=== PATIENT | male | born 2005 | race Hispanic/Latino ===

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

== ENCOUNTER 2025-01-03 20:15 | Emergency (ER) | payer SELFPAY ==
--- OUTSIDE RECORDS SUMMARY | 2025-01-03 20:17 | XMS_ITS | Clinical Summary ---
Author Organization [facility] Address [address] [place] [id number] Care Team Providers Care Gas Meter Repair Supervisor Name Role Phone No, Physician Primary Care Provider [phone] Allergies No known active allergies Medications ondansetron ODT (ZOFRAN-ODT) 4 mg disintegrating tablet Take 1 tablet (4 mg total) by mouth every 8 (eight) hours as needed for nausea or vomiting 20 tablet 3 Active Surgical History Surgery Date Site/Laterality Comments CLOSED REDUCTION RADIAL / ULNAR SHAFT FRACTURE Right Medical History Medical History Date Comments No pertinent past medical history Social History Tobacco Use Types Packs/Day Years Used Date Smoking Tobacco: Never Tobacco Cessation:Counseling Given: Not Answered Alcohol Use Standard Drinks/Week Comments Not Currently 0 (1 standard drink = 0.6 oz pur e alcohol) Personal Safety Answer Date Recorded Getting School Help Needed Not on file 07/20 Sex and Gender Information Value Date Recorded Sex Assigned at Not on file Legal Sex Male 9:25 PM CDT Gender Identity Not on file Sexual Orientation Not on file Obstetrics History Last Filed Vital Signs Vital Sign Reading Time Taken Comments Blood Pressure 118/68 09/07/2023 6:00 AM APPLIANCE INSTALLER Pulse 78 09/07/2023 6:00 AM APPLIANCE INSTALLER Temperature 36.7 C (98.1 F) 09/07/2023 2:29 AM APPLIANCE INSTALLER Respiratory Rate 17 09/07/2023 6:00 AM APPLIANCE INSTALLER Oxygen Saturation 100% 09/07/2023 6:00 AM APPLIANCE INSTALLER Inhaled Oxygen Concentration - - Weight 72.6 kg (160 lb) 09/07/2023 2:29 AM APPLIANCE INSTALLER Height 170.2 cm (5' 7 ) 09/07/2023 2:29 AM APPLIANCE INSTALLER Body Mass Index 25.06 09/07/2023 2:29 AM APPLIANCE INSTALLER Plan of Treatment Health Maintenance Due Date Last Done Comments Depression Screening 2004 Hepatitis C Screening 2004 Meningococcal B Vaccine (2 o f 2 - Trumenba SCDM 2-dose series) 02/06/2022 08/09/2021 Regular Well Visit/Exam 18-64 02/20/2022 Influenza Vaccine (#1) 2024 , 06/28/2017, 06/22/2016 DTaP/Tdap/Td Vaccine (8 - Td or Tdap) 06/22/2026 06/22/2016, 06/20/2016, 06/01/2009, Additional history exists Hepatitis B Screening Completed 2004 , 2004, 2004, Additional history exists Pneumococcal vaccine <65 Completed 005, 2004, 2004, Additional history exists HPV Vaccines Completed 06/28/2017, 08/29, 05/06/2013, Additional history exists Varicella Vaccines Completed 06/28/2017, 0 06/22/2016, 06/01/2009, Additional history exists Meningococcal Vaccine Completed 08/09/2020 , 06/22/2016, 06/20/2016 Care Teams Gas Meter Repair Supervisor Relationship Specialty Start Date End Date No, Physician PCP - General 07/19/23
--- OUTSIDE RECORDS SUMMARY | 2025-01-03 20:17 | XMS_ITS | Referral Summary ---
Author Organization [facility] Address [address] [place] [phone] Care Team Providers Care Career Services Representative Name Role Phone No, Physician Primary Care Provider [phone] Allergies No known active allergies Medications ondansetron ODT (ZOFRAN-ODT) 4 mg disintegrating tablet Take 1 tablet (4 mg total) by mouth every 8 (eight) hours as needed for nausea or vomiting 20 tablet 3 Active Social History Tobacco Use Types Packs/Day Years [...] on file Sexual Orientation Not on file Last Filed Vital Signs Vital Sign Reading Time Taken Comments Blood Pressure 118/68 09/07/2023 6:00 AM HEALTH PROGRAM ANALYST Pulse 78 09/07/2023 6:00 AM HEALTH PROGRAM ANALYST Temperature 36.7 C (98.1 F) 09/07/2023 2:29 AM HEALTH PROGRAM ANALYST Respiratory Rate 17 09/07/2023 6:00 AM HEALTH PROGRAM ANALYST Oxygen Saturation 100% 09/07/2023 6:00 AM HEALTH PROGRAM ANALYST Inhaled Oxygen Concentration - - Weight 72.6 kg (160 lb) 09/07/2023 2:29 AM HEALTH PROGRAM ANALYST Height 170.2 cm (5' 7 ) 09/07/2023 2:29 AM HEALTH PROGRAM ANALYST Body Mass Index 25.06 09/07/2023 2:29 AM HEALTH PROGRAM ANALYST Plan of Treatment Not on file Care Teams Career Services Representative Relationship Specialty Start Date End Date No, Physician PCP - General 07/19/23
--- NOTE | 2025-01-03 20:46 | PC.NURSE ---
called pt for triage, no answer
--- NOTE | 2025-01-03 20:57 | PC.NURSE ---
No answer when called again for Triage
--- NOTE | 2025-01-03 21:10 | PC.NURSE ---
called for triage, no answer
--- OUTSIDE RECORDS SUMMARY | 2025-01-03 21:15 | XMS_ITS | Encounter Summary ---
Author Organization [facility] Address [address] [place] [address] Care Team Providers Care Development Analyst Name Role Phone No, Physician Primary Care Provider [phone] Reason for Visit * Reason Comments Shortness of Breath Palpitations Encounter Details Date Type Department Care Team (Late st Contact Info) Description 01/03/2025 8:50 PM CDT Emergency [facility] Emergency Department [facility] [place] [address] Social History Tobacco Use Types Packs/Day Years Used Date Smoking Tobacco: Never Alcohol Use Standard Drinks/Week Comments Not Currently 0 (1 standard drink = 0.6 oz pur e alcohol) Personal Safety Answer Date Recorded Getting School Help Needed Not on file 07/20 Sex and Gender Information Value Date Recorded Sex Assigned at Not on file Legal Sex Male 9:25 PM CDT Gender Identity Not on file Sexual Orientation Not on file documented as of this encounter Last Filed Vital Signs Vital Sign Reading Time Taken Comments Blood Pressure 132/83 01/03/2025 9:00 PM CDT Pulse 123 01/03/2025 9:00 PM CDT Temperature 36.6 C (97.9 F) 01/03/2025 9:00 PM CDT Respiratory Rate 20 01/03/2025 9:00 PM CDT Oxygen Saturation 100% 01/03/2025 9:00 PM CDT Inhaled Oxygen Concentration - - Weight 80.8 kg (178 lb 2.1 oz) 01/03/2025 9:00 P M CDT Height - - Body Mass Index 27.9 09/07/2023 2:29 AM MEDICAL TECHNOLOGIST PRN documented in this encounter ED Notes * Artem Jett RN - 01/03/2025 8:57 PM CDT Pt arrives complaining of shortness of breath with palpitations. My chest feels really tight on my lungs right now. Pt states that he was walking in [employer] and then had a spell of dizziness followed by palpitationsand chest tightness. Resp even and non labored. Pt visibly anxious in triage. Pt keeps stating, something bad feels like its going to happen. documented in this encounter Plan of Treatment Pending Results Name Type Priority Associated Diagnoses Date /Time Influenza A/B, RSV, and COVID-19 PCR Nasopharyngeal Microbiology STAT 01/03/2025 9:08 PM CDT Comprehensive metabolic panel Lab STAT 01/03/2025 9:08 PM CDT Scheduled Orders Name Type Priority Associated Diagnoses Order Schedule Influenza A/B, RSV, and COVID-19 PCR Nasopharyngeal Microbiology Routine Once for 1 Occurrences starting 01/03/2025 until 01/03/2025 Comprehensive metabolic panel Lab STAT STAT for 1 Occurrences starting 01/03/2025 until 01/03/2025 ECG 12 lead ECG STAT Once for 1 Occurrences starting 01/03/2025 until 01/03/2025 Oxygen Therapy - Nasal Cannula; 2 L/min Respiratory Care STAT For RT frequen cy use only for continuous procedures with task-based reminders at 8a and 8p until discontinued starting 01/03/2025 XR Chest 1 Vw Portable (if patient condition/safety warrant portable) Imaging ED Once for 1 Occurrences starting 01/03/2025 until 01/03/2025 documented as of this encounter Procedures Procedure Name Priority Date/Time Associated Diagnosis Comments DIFFERENTIAL AUTO STAT 01/03/2025 9:0 8 PM CDT CBC WITH AUTO DIFFERENTIAL STAT 01/03/2025 9:08 PM CDT documented in this encounter Results * (ABNORMAL) Differential, auto (01/03/2025 9:08 PM CDT) Neutrophil abs 5.54 1.50 - 6.50 K/cumm Comment:Testing performed by : [facility], [address] [place] [address], [place]., [address] Imm gran abs 0.02 0.00 - 0.10 K/cumm [facility] Comment:Testing performed by : [address] [address] Lymphocyte abs 3.44(H) 0.80 - 3.30 K/cumm [facility] Comment:Testing performed by : [address] [address] Monocyte abs 0.66 0.20 - 0.80 K/cumm [facility] Comment:Testing performed by : [address], [place]., [address] Eosinophil abs 0.22 0.00 - 0.50 K/cumm [facility] Comment:Testing performed by : [address] [address] Basophil abs 0.03 0.00 - 0.10 K/cumm [facility] Comment:Testing performed by : [address] [address] Neutrophil pct 55.9 % [facility] Comment: Interpretive Data Percent cell count reference ranges are not reported, since discordance with absolute values may lead to misinterpretation of CBC data. Current Interpretive Data was last revised on 2018. Testing performed by: [address] [address] Imm gran pct 0.2 % [facility] Comment: Interpretive Data Percent cell count reference ranges are not reported, since discordance with absolute values may lead to misinterpretation of CBC data. Current Interpretive Data was last revised on 2018. Testing performed by: [address] [address] Lymphocyte pct 34.7 % [facility] Comment: Interpretive Data Percent cell count reference ranges are not reported, since discordance with absolute values may lead to misinterpretation of CBC data. Current Interpretive Data was last revised on 2018. Testing performed by: [address] [address] Monocyte pct 6.7 % [facility] Comment: Interpretive Data Percent cell count reference ranges are not reported, since discordance with absolute values may lead to misinterpretation of CBC data. Current Interpretive Data was last revised on 2018. Testing performed by: [address] [address] Eosinophil pct 2.2 % [facility] Comment: Interpretive Data Percent cell count reference ranges are not reported, since discordance with absolute values may lead to misinterpretation of CBC data. Current Interpretive Data was last revised on 2018. Testing performed by: [address] [address] Basophil pct 0.3 % [facility] Comment: Interpretive Data Percent cell count reference ranges are not reported, since discordance with absolute values may lead to misinterpretation of CBC data. Current Interpretive Data was last revised on 2018. Testing performed by: [address] [address] Blood 01/03/2025 9:08 PM CDT 01/03/2025 9:11 PM CDT Heather Schmidt WINDSHIELD TECHNICIAN LAB BLOOD ORDERABLES Fin al Result K[facility] Department [place] [address] * (ABNORMAL) CBC with auto differential (01/03/2025 9:08 PM CDT) WBC 9.91(H) 3.80 - 9.90 K/cumm Comment:Testing performed by : [address] [address] Hgb 13.6 13.0 - 17.5 g/dL [facility] SCHM[facility] Comment:Testing performed by : [address] [address] Hct 41.4 38.9 - 50.3 % [facility] SCHM[facility] Comment:Testing performed by : [address] [address] Plt 342 150 - 400 K/cumm [facility] SCHMIDT Comment:Testing performed by : [address] [address] MPV 10.7 9.1 - 12.3 fL [facility] SCHM[facility]T Comment:Testing performed by : [address] [address] RBC 4.68 4.30 - 5.80 M/cumm [facility]A Comment:Testing performed by : [address], [address] MCV 88.5 81.3 - 96.4 fL [facility]ITHA Comment:Testing performed by : [address], [address] MCH 29.1 27.1 - 33.3 pg K[facility]ITHA Comment:Testing performed by : [address], [address] MCHC 32.9 32.3 - 35.7 g/dL [facility]ITHA Comment:Testing performed by : [address], [address] RDW CV 12.6 11.1 - 14.9 % [facility]A Comment:Testing performed by : [address], [address] RDW SD 40.9 35.7 - 48.1 fL [facility]ITHA Comment:Testing performed by : [address], [address] NRBC abs 0.00 0.00 - 0.01 K/cumm [facility] Comment:Testing performed by : [address], [address] Blood Venous blood specimen / Unknown 01/03/2025 9:08 PM CDT 01/03/2025 9:11 PM CDT Heather Schmidt WINDSHIELD TECHNICIAN LAB BLOOD ORDERABLES Fin al Result [facility] [address] [facility] Department [place] [address] documented in this encounter Visit Diagnoses Not on filedocumented in this encounter Orders Nursing Count Last Ordered Date First Orde red Date CARDIO RESPIRATORY MONITORING 1 01/03/2025 CONTINUOUS PULSE OXIMETRY 1 01/03/2025 MISCELLANEOUS NURSING CARE ORDER (SPECIFY) 1 01/03/2025 Isolation Count Last Ordered Date First Orde red Date INITIATE AIRBORNE ISOLATION 1 01/03/2025 INITIATE CONTACT ISOLATION 1 01/03/2025 IV Count Last Ordered Date First Orde red Date SALINE LOCK IV 1 01/03/2025 documented in this encounter Care Teams Development Analyst Relationship Specialty Start Date End Date No, Physician PCP - General 07/19/23 documented as of this encounter
--- OUTSIDE RECORDS SUMMARY | 2025-01-03 21:15 | XMS_ITS | Referral Summary ---
Author Organization [facility] Address [address] [place] [phone] Care Team Providers Care Sticker Operator Name Role Phone No, Physician Primary Care Provider [phone] Encounters Date Type Department Care Team Description 01/03/2025 8:50 PM CDT Emergency [facility] Emergency Department [address] [place] [address] from Last 3 Months Allergies No known active allergies Medications ondansetron [...] oz) 01/03/2025 9:00 P M CDT Height 170.2 cm (5' 7 ) 09/07/2023 2:29 AM VEGETABLES COOK Body Mass Index 27.9 09/07/2023 2:29 AM VEGETABLES COOK Plan of Treatment Not on file Procedures Procedure Name Priority Date/Time Associated Diagnosis Comments DIFFERENTIAL AUTO STAT 01/03/2025 9:0 8 PM CDT CBC WITH AUTO DIFFERENTIAL STAT 01/03/2025 9:08 PM CDT from Last 3 Months Results * (ABNORMAL) Differential, auto (01/03/2025 9:08 PM CDT) Neutrophil abs 5.54 1.50 - 6.50 K/cumm Comment:Testing performed by : [address] [address] Imm gran abs 0.02 0.00 - 0.10 K/cumm KAVITHA Comment:Testing performed by : [address] [address] Lymphocyte abs 3.44(H) 0.80 - 3.30 K/cumm K[facility]ITHA Comment:Testing performed by : [address] [address] Monocyte abs 0.66 0.20 - 0.80 K/cumm [facility]A Comment:Testing performed by : [address] [address] Eosinophil abs 0.22 0.00 - 0.50 K/cumm [facility] Comment:Testing performed by : [address] [address] Basophil abs 0.03 0.00 - 0.10 K/cumm [facility]A Comment:Testing performed by : [address] [address] Neutrophil pct 55.9 % K[facility]ITHA Comment: Interpretive Data Percent cell count reference ranges are not reported, since discordance with absolute values may lead to misinterpretation of CBC data. Current Interpretive Data was last revised on 2018. Testing performed by: [address] [address] Imm gran pct 0.2 % [facility] Comment: Interpretive Data Percent cell count reference ranges are not reported, since discordance with absolute values may lead to misinterpretation of CBC data. Current Interpretive Data was last revised on 2018. Testing performed by: [address] [address] Lymphocyte pct 34.7 % [facility] Comment: Interpretive Data Percent cell count reference ranges are not reported, since discordance with absolute values may lead to misinterpretation of CBC data. Current Interpretive Data was last revised on 2018. Testing performed by: [address] [address] Monocyte pct 6.7 % [facility] Comment: Interpretive Data Percent cell count reference ranges are not reported, since discordance with absolute values may lead to misinterpretation of CBC data. Current Interpretive Data was last revised on 2018. Testing performed by: [address] [address] Eosinophil pct 2.2 % [facility] Comment: Interpretive Data Percent cell count reference ranges are not reported, since discordance with absolute values may lead to misinterpretation of CBC data. Current Interpretive Data was last revised on 2018. Testing performed by: [address] [address] Basophil pct 0.3 % [facility] Comment: Interpretive Data Percent cell count reference ranges are not reported, since discordance with absolute values may lead to misinterpretation of CBC data. Current Interpretive Data was last revised on 2018. Testing performed by: [address] [address] Blood 01/03/2025 9:08 PM CDT 01/03/2025 9:11 PM CDT us Heather Schmidt NP LAB BLOOD ORDERABLES Fin al Result KAVITHA SCHMIDT [address] [facility] Department [place] [address] * (ABNORMAL) CBC with auto differential (01/03/2025 9:08 PM CDT) [facility] WBC 9.91(H) 3.80 - 9.90 K/cumm Comment:Testing performed by : [address], [address] Hgb 13.6 13.0 - 17.5 g/dL KAVITHA Comment:Testing performed by : [address], [address] Hct 41.4 38.9 - 50.3 % KAVITHA Comment:Testing performed by : [address], [address] Plt 342 150 - 400 K/cumm KAVITHA Comment:Testing performed by : [address], [address] MPV 10.7 9.1 - 12.3 fL KAVITHA Comment:Testing performed by : [address], [address] RBC 4.68 4.30 - 5.80 M/cumm K[facility]ITHA Comment:Testing performed by : [address], [address] MCV 88.5 81.3 - 96.4 fL K[facility]ITHA Comment:Testing performed by : [address], [address] MCH 29.1 27.1 - 33.3 pg KAVITHA Comment:Testing performed by : [address], [address] MCHC 32.9 32.3 - 35.7 g/dL K[facility]ITHA Comment:Testing performed by : [address], [address] RDW CV 12.6 11.1 - 14.9 % [facility]A Comment:Testing performed by : [address], [address] RDW SD 40.9 35.7 - 48.1 fL K[facility]ITHA Comment:Testing performed by : [address], [address] NRBC abs 0.00 0.00 - 0.01 K/cumm [facility] Comment:Testing performed by : [address] [address] Blood Venous blood specimen / Unknown 01/03/2025 9:08 PM CDT 01/03/2025 9:11 PM CDT us Heather Schmidt NP LAB BLOOD ORDERABLES Fin al Result Performing Organization Address City/State/[facility] Co de Phone Number [address] Department [place] [address] from Last 3 Months Care Teams Sticker Operator Relationship Specialty Start Date End Date No, Physician PCP - General 07/19/23
--- OUTSIDE RECORDS SUMMARY | 2025-01-03 21:15 | XMS_ITS | Clinical Summary ---
Author Organization [facility] Address [address] [place] [id number] Care Team Providers Care Alumni Relations Manager Name Role Phone No, Physician Primary Care Provider [phone] Allergies No known active allergies Medications ondansetron ODT (ZOFRAN-ODT) 4 mg disintegrating tablet Take 1 tablet (4 mg total) by mouth every 8 (eight) hours as needed for nausea or vomiting 20 tablet 3 Active Encounters Date Type Department Care Team Description 01/03/2025 8:[address] [facility] Emergency Department [address] [place] [address] from Last 3 Months Surgical History Surgery Date Site/Laterality Comments CLOSED [...] cm (5' 7 ) 09/07/2023 2:29 AM DETENTION WORKER Body Mass Index 27.9 09/07/2023 2:29 AM DETENTION WORKER Plan of Treatment Health Maintenance Due Date Last Done Comments Depression Screening 2004 Hepatitis C Screening 2004 Meningococcal B Vaccine (2 o f 2 - Trumenba SCDM 2-dose series) 02/06/2022 08/09/2021 Regular Well Visit/Exam 18-64 02/20/2022 Influenza Vaccine (Season Ended) 2025 08/09/2021, 06/28/2017, 06/22/2016 DTaP/Tdap/Td Vaccine (8 - Td or Tdap) 06/22/2026 06/22/2016, 06/20/2016, 06/01/2009, Additional history exists Hepatitis B Screening Completed 2004 , 2004, 2004, Additional history exists Pneumococcal vaccine <65 Completed 005, 2004, 2004, Additional history exists HPV Vaccines Completed 06/28/2017, 08/29, 05/06/2013, Additional history exists Varicella Vaccines Completed 06/28/2017, 0 06/22/2016, 06/01/2009, Additional history exists Meningococcal Vaccine Completed 08/09/2020 , 06/22/2016, 06/20/2016 Procedures Procedure Name Priority Date/Time Associated Diagnosis Comments DIFFERENTIAL AUTO STAT 01/03/2025 9:0 8 PM CDT CBC WITH AUTO DIFFERENTIAL STAT 01/03/2025 9:08 PM CDT from Last 3 Months Results * (ABNORMAL) Differential, auto (01/03/2025 9:08 PM CDT) Neutrophil abs 5.54 1.50 - 6.50 K/cumm Comment:Testing performed by : [facility], [address] [place] [address], [place]., [address] Imm gran abs 0.02 0.00 - 0.10 K/cumm KAVITHA Comment:Testing performed by : [address], [place]., [address] Lymphocyte abs 3.44(H) 0.80 - 3.30 K/cumm KAVITHA Comment:Testing performed by : [address], [place]., [address] Monocyte abs 0.66 0.20 - 0.80 K/cumm [facility] Comment:Testing performed by : [address], [place]., [address] Eosinophil abs 0.22 0.00 - 0.50 K/cumm [facility] Comment:Testing performed by : [address] [address] Basophil abs 0.03 0.00 - 0.10 K/cumm [facility] Comment:Testing performed by : [address] [address] Neutrophil pct 55.9 % [facility] Comment: Interpretive Data Percent cell count reference ranges are not reported, since discordance with absolute values may lead to misinterpretation of CBC data. Current Interpretive Data was last revised on 2018. Testing performed by: [address] [address] Imm gran pct 0.2 % [facility] Comment: Interpretive Data Percent cell count reference ranges are not reported, since discordance with absolute values may lead to misinterpretation of CBC data. Current Interpretive Data was last revised on 2018. Testing performed by: [address] [address] Lymphocyte pct 34.7 % [facility] Comment: Interpretive Data Percent cell count reference ranges are not reported, since discordance with absolute values may lead to misinterpretation of CBC data. Current Interpretive Data was last revised on 2018. Testing performed by: [address] [address] Monocyte pct 6.7 % [facility] Comment: Interpretive Data Percent cell count reference ranges are not reported, since discordance with absolute values may lead to misinterpretation of CBC data. Current Interpretive Data was last revised on 2018. Testing performed by: [address] [address] Eosinophil pct 2.2 % KAVITHA SCHMIDT Comment: Interpretive Data Percent cell count reference ranges are not reported, since discordance with absolute values may lead to misinterpretation of CBC data. Current Interpretive Data was last revised on 2018. Testing performed by: [address] [address] Basophil pct 0.3 % KAVITHA SCHMIDT Comment: Interpretive Data Percent cell count reference ranges are not reported, since discordance with absolute values may lead to misinterpretation of CBC data. Current Interpretive Data was last revised on 2018. Testing performed by: [address] [address] Blood 01/03/2025 9:08 PM CDT 01/03/2025 9:11 PM CDT Heather Schmidt SALON RECEPTIONIST LAB BLOOD ORDERABLES Fin al Result KAVITHA [facility] Department [place] [address] * (ABNORMAL) CBC with auto differential (01/03/2025 9:08 PM CDT) WBC 9.91(H) 3.80 - 9.90 K/cumm Comment:Testing performed by : [address] [address] Hgb 13.6 13.0 - 17.5 g/dL KAVITHA SCHMIDT Comment:Testing performed by : [address] [address] Hct 41.4 38.9 - 50.3 % KAVITHA SCHMIDT Comment:Testing performed by : [address] [address] Plt 342 150 - 400 K/cumm KAVITHA SCHMIDT Comment:Testing performed by : [address] [address] MPV 10.7 9.1 - 12.3 fL KAVITHA SCHMIDT Comment:Testing performed by : [address] [address] RBC 4.68 4.30 - 5.80 M/cumm KAVITHA SCHMIDT Comment:Testing performed by : [address], [address] MCV 88.5 81.3 - 96.4 fL KAVITHA Comment:Testing performed by : [address] [address] MCH 29.1 27.1 - 33.3 pg KAVITHA SCHMIDT Comment:Testing performed by : [address], [address] MCHC 32.9 32.3 - 35.7 g/dL KAVITHA Comment:Testing performed by : [address], [address] RDW CV 12.6 11.1 - 14.9 % KAVITHA Comment:Testing performed by : [address], [address] RDW SD 40.9 35.7 - 48.1 fL KAVITHA Comment:Testing performed by : [address], [address] NRBC abs 0.00 0.00 - 0.01 K/cumm KAVITHA Comment:Testing performed by : [address], [address] Blood Venous blood specimen / Unknown 01/03/2025 9:08 PM CDT 01/03/2025 9:11 PM CDT Heather Schmidt SALON RECEPTIONIST LAB BLOOD ORDERABLES Fin al Result KAVITHA [address] [facility] Department of Laboratories [place], [place] [id number] from Last 3 Months Care Teams Alumni Relations Manager Relationship Specialty Start Date End Date No, Physician PCP - General 07/19/23
== END 2025-01-03 21:22 | disposition left against medical advice (07) ==
LOC: ANHED 21:13
DX: Z53.21 Procedure and treatment not carried out due to patient leaving prior to being seen by health care provider (principal)
CPT/HCPCS: 99199

== ENCOUNTER 2025-03-16 16:09 | Emergency (ER) | payer SELFPAY ==
--- NOTE | 2025-03-16 16:14 | ED.URI ---
HPI - URI/Sore Throat General Chief Complaint: Upper Respiratory Infection Stated Complaint: cough Time Seen by Provider: 03/16/25 16:14 Source: patient Mode of arrival: ambulatory Limitations: no limitations History of Present Illness HPI Narrative: Patient is a 20-year-old male who presents with concern for cancers since his tonsils are enlarged. Patient states while brushing his teeth he looked in the mirror and felt like his tonsils were larger than normal. Patient states they have been large in the past but they normally go down. Denies any sore throat, congestion, cough, fever, chills, nausea, vomiting, diarrhea. Patient has been working outside in [employer] the last week he has had itchy watery eyes and sneezing. Does not take any allergy medicine every day. Has not taken any other medication for symptoms. States he is concerned because breast cancer runs in his family. Patient states he stops smoking marijuana 2 weeks ago. Related Data Allergies Allergy/AdvReac Type Severity Reaction Status Date / Time No Known Allergies Allergy Verified 03/16/25 16:14 Review of Systems Review of Systems: All systems reviewed & are unremarkable except as noted in HPI and below Constitutional: Constitutional: Denies chills, Denies fatigue, Denies fever(s), Denies headache(s), Denies malaise and Denies weakness Eyes: Eyes: Denies blurry vision, Denies itchy eyes and Denies loss of vision ENT: Denies otalgia, Denies headache(s), Denies nasal congestion, Denies sinus pain, Denies sore throat and Reports other (enlarged tonsils) Cardiovascular: Cardiovascular: Denies chest pain, Denies irregular heart rhythm and Denies dyspnea Respiratory: Respiratory: Denies cough and Denies dyspnea Gastrointestinal: Gastrointestinal: Denies abdominal pain, Denies diarrhea, Denies nausea and Denies vomiting Musculoskeletal: Musculoskeletal: Denies back pain, Denies myalgias and Denies arthralgias Integumentary/Breasts: Skin/Breast: Denies pruritus and Denies rash Neurologic: Denies headache(s), Denies loss of vision and Denies weakness Psychiatric: Psychiatric: Reports no additional psychiatric complaints Endocrine: Endocrine: Denies fatigue Allergic/Immunologic: Allergic/Immunologic: Denies itchy eyes PMFSH Past Medical History Medical History Healthy adult male Surgical History Surgical History No history of previous surgery Comments At time of signature, agree with nursing past medical, surgical, social and family history. There is no relevant family history pertinent to the presenting complaint. Exam Const: General: cooperative, healthy appearing, comfortable, no acute distress and well nourished Nutritional Appearance: well nourished Orientation/consciousness: patient oriented x3 Limitations: no limitations HENMT: Head: normal to inspection, normocephalic and atraumatic Ears: hearing grossly normal bilaterally, external ears normal, TM's normal bilaterally, EAC's normal and no periauricular adenopathy Face/Nose/Sinus: Normal external nose present, Normal nasal mucous membranes and turbinates present, normal facial exam, sinuses nontender and face symmetric Face and sinus: normal facial exam, sinuses nontender and face symmetric Mouth: Yes Normal oral and palatal mucosa present, Yes lip normal, Yes tongue normal, Yes Normal salivary glands and ducts present, Yes oropharynx normal and Yes moist mucous membranes Teeth and gingiva: dentition normal Throat: posterior oropharynx normal, uvula midline and abnormal tonsil bilateral hypertrophy 3+ and pitting; no erythema and no exudates Eyes: General: appearance normal, both eyes and all related structures Alignment and Position: alignment normal and position normal Periorbital: periorbital findings normal Eyelids: eyelids normal Pupils: Equal, round and reactive pupils present Neck: Neck: normal visual inspection, full ROM, no lymphadenopathy and supple Chest: Chest palpation & inspection: normal inspection of the chest and normal palpation of entire chest wall Resp: Effort & Inspection: normal respiratory effort and able to speak in complete sentences Auscultation: clear to auscultation bilaterally, no crackles, no rales, no rhonchi and no wheezes Cardio: Rate: regular rate Rhythm: regular rhythm Heart sounds: S1 normal heart sound present and S2 normal heart sound present GI: Inspection: normal to inspection Skin: General skin exam: normal color and no rashes or lesions noted Neuro: General: patient oriented x3 and moves all extremities Cranial nerves: Yes Equal, round and reactive pupils present Speech: normal speech Gait exam (Neuro): Normal gait present Extrem: General: normal to inspection, full ROM and no edema Psych: Appearance: grossly normal and well kempt Mental Status: mental status grossly normal Speech and movement: Normal speech and movement present Affect: normal affect Attitude: cooperative Thought process: Normal thought process present Course Course Emergency Course: Discharge instructions reviewed with patient, as well as provided in writing per nursing staff. The instructions also include specific and strict return/GO TO THE ER as well as f/u information. All questions have been answered, and the patient deny any further questions with discharge and discharge plan. Portions of this record may have been created with voice recognition software Level of Care: Express Care Visit Vital Signs Vital signs: Vital Signs Temperature 36.4 C 03/16/25 16:18 Pulse Rate 103 H 03/16/25 16:18 Respiratory Rate 12 03/16/25 16:18 Blood Pressure 145/78 H 03/16/25 16:18 Pulse Oximetry 99 03/16/25 16:18 Temperature 36.4 C 03/16/25 16:18 Pulse Rate 103 H 03/16/25 16:18 Respiratory Rate 12 03/16/25 16:18 Blood Pressure 145/78 H 03/16/25 16:18 Pulse Oximetry 99 03/16/25 16:18 Reviewed MDM - URI/Sore Throat MDM Narrative Medical decision making narrative: Pt well hydrated appearing, in no respiratory distress, hemodynamically stable. Recommend supportive care. The patient is stable at time of discharge the clinical impression was discussed and the patient was given the opportunity to ask questions, which were addressed as completely as possible given the information available at present. Anticipatory guidance and return to care precautions were discussed and the importance of primary care follow-up was stressed and encouraged. The patient voiced understanding of the plan, indications to return, and the need for follow-up. Exam findings show no acute concerns or changes Patient is appropriate for outpatient treatment and follow-up. Differential diagnosis considered: tonsillitis, Herzog virus, strep pharyngitis, allergic rhinitis, upper respiratory tract infection, sinusitis, rhinosinusitis, nasopharyngitis. viral pharyngitis, otitis media, otitis externa, otitis effusion, foreign body, cerumen impaction, viral syndrome, and influenza.? Medical Records Attestation: I reviewed the patient's medical records. Lab Data Attestation: I reviewed the patient's lab results. Labs: Lab Results 03/16/25 Range/Units 16:32 POC Grp A Strep Screen Negative (Negative) Discharge Plan Discharge Clinical Impression: Enlarged tonsils Allergic rhinitis Qualifiers: Allergic rhinitis trigger: other Allergic rhinitis seasonality: seasonal Qualified Code(s): J30.89 - Other allergic rhinitis Patient Disposition: Home Condition: Stable Instructions: Tonsillitis (ED) Additional Instructions: Your rapid strep swab was negative today at [facility]. A throat culture will be sent to the laboratory for further testing. If the test is positive, you will receive a phone call within 48 hours and an appropriate antibiotic will be initiated at that time. Your symptoms are likely due to a viral illness, which is not treated with antibiotics. Viral symptoms can be present for up to a few weeks. -For pain/fever, you may take: Tylenol 650-1000mg by mouth every 4-6 hours. Do not exceed 4000mg in 24 hours. Advil (Ibuprofen) 600 mg by mouth every 6 hours. Do not exceed 2400mg in 24 hours. 8 AM: Tylenol 11 AM: Ibuprofen 2 PM: Tylenol 5 PM: Ibuprofen 8 PM: Tylenol 11 PM: Ibuprofen 2 AM: Tylenol 5 AM: Ibuprofen -Antihistamine medication such as Benadryl/Zyrtec at night and Claritin/Zunilda during the day can help improve symptoms. -Use Flonase twice a day for 5 days then daily to help reduce the inflammation and dry up your sinuses. -You can also use Sudafed behind the pharmacy counter(12 or 24 hour). Be sure to drink plenty of water with these medications at least 8 ounces with every dose and it is important to drink 8 to 10 glasses of water per day. Water is a natural decongestant -Eat and drink things that are easy to swallow, like tea or soup, or popsicles. -Oral rinses such as: Salt water gargles and/or may use topical anesthetic (eg. Chloraseptic spray) or lozenges to relieve dryness or throat pain). -Frequent hand washing or hand effervescent salts compounder is one of the best ways to prevent spread of infection. -Using a vaporizer or humidifier at night will also help thin secretions and help with coughing up phlegm. Call your Primary Care Doctor and make a follow-up appointment in 3 days. If your cough worsens, you develop a fever greater than 103, you develop shaking chills, a fast heartbeat, trouble breathing and/or feel you are are breathing much faster than usual, call your Primary Care Doctor or go to the ER. Patient Language: Vincentian Prescriptions: New fluticasone propionate [Flonase Allergy Relief] 50 mcg/actuation spray,suspension 1 spray intranasal DAILY Qty: 16 0RF Rx Instructions: administer into each nostril Follow-up/Referrals: Riccardo Majano MD [Physician] - 3 Days ([facility]) Time of Disposition: 16:39
[2025-03-16 16:18] VITALS: BP 145/78; PULSE 103; RESP 12; TEMP 36.4; O2SAT 99
[2025-03-16 16:56] LABS: EDSTREPNEGPOS1 Negative (Negative)
== END 2025-03-16 16:44 | disposition home or self-care (01) ==
PROVIDERS: Emergency Provider Nurse Practitioner Family
DX: J35.1 Hypertrophy of tonsils (principal); J30.89 Other allergic rhinitis
CPT/HCPCS: 87081; 87880; 99213; G0463

== ENCOUNTER 2025-07-13 17:09 | Observation (INO) | payer OTHER, SELFPAY ==
[2025-07-13] VITALS (14 sets, daily range): BP systolic 145; BP diastolic 104; PULSE 79–112; RESP 15–29; TEMP 36.9; O2SAT 96–100
--- NOTE | ~2025-07-13 | CT_ITS ---
CT abdomen pelvis w con INDICATION:Abdominal cramping, leukocytosis, elevated LFTs . COMPARISON: None. TECHNIQUE: Axial images of the abdomen and pelvis were obtained following infusion of 100 mL Isovue 300. Dose optimization technique was utilized. FINDINGS: The lung bases are clear. Fatty infiltration of the liver is noted. No intrahepatic mass or ductal dilatation is evident. The gallbladder is unremarkable. The pancreas and spleen are normal in appearance. The adrenal glands are symmetric in size. The kidneys demonstrate symmetric uptake and excretion of contrast. No cystic mass is evident. There is no solid mass. There is no hydronephrosis. The stomach and bowel loops are unremarkable. The appendix is normal in appearance. The bladder and rectum are normal. No free intraperitoneal fluid or air is evident. There is no significant retroperitoneal lymphadenopathy. The aorta, visceral vessels and renal arteries demonstrate normal caliber and patency. The lower thoracic and lumbar vertebrae are in normal alignment. IMPRESSION: No acute abnormality is noted in the abdomen and pelvis. Hepatic steatosis. All CT scans at this facility are performed using low dose modulation techniques as appropriate to perform exam including the following: automated exposure control; use of iterative reconstruction technique; adjustment of the mA and/or kV according to patient size (this includes techniques or standardized protocols for targeted exams where dose is matched to indication/reason for exam). Reviewed, dictated and finalized at location S. IMPRESSION: No acute abnormality is noted in the abdomen and pelvis. Hepatic steatosis. All CT scans at this facility are performed using low dose modulation techniqu es as appropriate to perform exam including the following: automated exposure c ontrol; use of iterative reconstruction technique; adjustment of the mA and/or kV according to patient size (this includes techniques or standardized protocol s for targeted exams where dose is matched to indication/reason for exam).
--- NOTE | ~2025-07-13 | XR_ITS ---
XR chest 2V HOSTORY: weakness COMPARISON:[ None] FINDINGS: Frontal and lateral views of the chest were obtained. The lungs are clear. The heart size is normal in size. Pulmonary vasculature is unremarkable. Osseous structures are intact. IMPRESSION: No acute lung findings.] [ ] Reviewed, dictated and finalized at location S.
--- NOTE | ~2025-07-13 | US_ITS ---
EXAMINATION: US soft tissue head and neck DATE: 07/14/2025 07:57 INDICATION: Nontender enlarged cervical lymph notes TECHNIQUE: Multiple grayscale and Doppler ultrasound images of the neck were obtained. COMPARISON: None FINDINGS: Mildly prominent but still normal-sized left jugular chain lymph node measuring 2.8 x 0.9 x 0.6 cm. There is a smaller 2.2 x 0.8 x 0.4 similar right jugular chain lymph node. No pathologically enlarged lymph nodes or abnormal masses or fluid collections identified. Visualized portion of the left thyroid appears normal. IMPRESSION: 1. Normal bilateral jugular chain lymph nodes. No pathologically enlarged lymphadenopathy or other abnormal masses or fluid collections identified. Reviewed, dictated and finalized at location A. IMPRESSION: 1. Normal bilateral jugular chain lymph nodes. No pathologically enlarged lymph adenopathy or other abnormal masses or fluid collections identified.
--- OUTSIDE RECORDS SUMMARY | 2025-07-13 17:54 | XMS_ITS | Clinical Summary ---
Author Organization [facility] Address [address] [place] [phone] Care Team Providers Care Software Administrator Name Role Phone No, Physician Primary Care Provider [phone] Allergies No known active allergies Medications ondansetron ODT (ZOFRAN-ODT) 4 mg disintegrating tablet Take 1 tablet (4 mg total) by mouth every 8 (eight) hours as needed for nausea or vomiting 20 tablet 3 Active benzonatate (TESSALON) 100 mg capsuleIndications: Cough Take 1 capsule (100 mg total) by mouth every 8 (eight) hours 21 capsule 5 Active Surgical History Surgery Date Site/Laterality Comments [...] e alcohol) Personal Safety Answer Date Recorded Have you ever been in or are you currently in a harmful physical or emotional relationship or is someone making you feel afraid or unsafe? 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 Body Mass Index 27.9 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 Plan of Treatment Health Maintenance Due Date Last Done Comments Depression Screening 2004 Hepatitis C Screening 2004 Meningococcal B Vaccine (2 o f 2 - Trumenba SCDM 2-dose series) 02/06/2022 08/09/2021 Regular Well Visit/Exam 18-64 02/20/2022 Influenza Vaccine (#1) 2025 , 06/28/2017, 06/22/2016 DTaP/Tdap/Td Vaccine (8 - [...] Meningococcal Vaccine Completed 08/09/2020 , 06/22/2016, 06/20/2016 Insurance [facility] Address: [facility] [id number] [place] [id number] Care Teams Software Administrator Relationship Specialty Start Date End Date No, Physician PCP - General 07/19/23
--- NOTE | 2025-07-13 19:47 | PC.NURSE ---
Patient family up to desk and upset about wait time. Red folder was provided upon intake. Process reiterated to patient family member. Family states understanding, but still unhappy about wait time.
[2025-07-13 20:04] LABS: Hematocrit 49.2 % (42.0-52.0); Hemoglobin 16.4 g/dL (14.0-18.0); Mean Corpuscular HGB Conc 33.3 g/dl (32-36); Mean Corpuscular Hemoglobin 28.7 pg (26-34); Mean Corpuscular Volume 86.0 fl (80-100); Platelet Count Result 386 k/mm3 (150-375); Red Blood Count 5.72 M/mm3 (4.6-6.20); White Blood Count 21.1 K/mm3 (4.5-10.0)
[2025-07-13 20:13] LABS: Albumin Level 5.9 g/dL (3.5-5.1); Carbon Dioxide 20 mmol/L (22-30); Chloride 103 mmol/L (98-107)
--- NOTE | 2025-07-13 20:30 | PC.NURSE ---
cpk, monotest, uds added to lab per herman
[2025-07-13 20:33] LABS: Band Neutrophils Percent 2 % (0-6); Basophils Absolute Manual 0.21 K/mm3 (0.0-0.1); Basophils Percent Manual 1 % (0-1); Lymphocytes Absolute Manual 1.26 K/mm3 (1.1-4.5); Lymphocytes Percent Manual 6.0 % (18-44); Monocytes Absolute Manual 1.26 K/mm3 (0.1-0.90); Monocytes Percent Manual 6 % (3-9); Neutrophils Absolute Manual 18.35 K/mm3 (1.3-6.7); Neutrophils Percent Manual 85 % (46-73); Total Cells Counted 100
[2025-07-13 20:34] LABS: Schistocytes None Seen
[2025-07-13 20:41] LABS: Add Urine Microscopic? YES; Appearance Urine Cloudy (Clear); Glucose Urine UA Negative (Negative); Leukocyte Esterase Ur Trace LEU/UL (Negative); Nitrate Urine Positive (Negative); Non Pathogenic Casts >20; Specific Grav Ur 1.043 (1.001-1.035)
[2025-07-13 20:44] LABS: Alanine Aminotransferase 172 U/L (6-50); Alkaline Phosphatase 121 U/L (38-126); Anion Gap 20 mmol/L (4-12); Aspartate Amino Transferase 106 U/L (17-59); Bilirubin,Total 2.4 mg/dL (0.2-1.3); Blood Urea Nitrogen 26 mg/dL (9-20); Calcium 10.7 mg/dL (8.4-10.2); Creatine Kinase 600 U/L (55-170); Estimated CRCL calculation 66 ml/min; Estimated Glomerular Filt Rate 55; Glucose 139 mg/dL (65-110); Lipase 99 U/L (23-300); Negative Monotest Control Negative (Negative); Positive Monotest Control Positive (Positive); Potassium 4.0 mmol/L (3.4-5.0); Sodium 143 mmol/L (137-145); Total Protein 10.4 g/dL (6.3-8.2)
[2025-07-13 21:06] LABS: Cannabinoid Screen Urine Positive (Negative)
[2025-07-13 21:14] LABS: Strep Group A RT-PCR NOT DETECTED (Negative)
[2025-07-13] MEDS: SODIUM CHLORIDE 0.9% IV 1,000 ML 999 ML IV CONT (21:17)
[2025-07-13 21:26] LABS: INR 1.1; Prothrombin Time 13.8 Seconds (11.1-14.7)
[2025-07-13 21:36] LABS: Magnesium 2.3 mg/dL (1.6-2.3)
[2025-07-13 21:53] LABS: Procalcitonin 0.1 ng/mL
--- NOTE | 2025-07-13 22:43 | ED_ITS ---
HPI - General Adult General Chief complaint: Recheck/Abnormal Lab/Rx Stated complaint: n/v Time Seen by Provider: 07/13/25 20:02 History of Present Illness HPI narrative: Patient 20-year-old gentleman who presents emergency department with chief complaint of I want to be checked for cancer. Patient reports he has been having nausea and vomiting reports that he started having muscle cramps throughout his entire body does report that he works in a very hot area and believes that he may be dehydrated the patient states that he noticed today that his urine was very dark in color and has noticed that for several months he has had lymph nodes in his neck that have been swollen Related Data Allergies Allergy/AdvReac Type Severity Reaction Status Date / Time No Known Allergies Allergy Verified 03/16/25 16:14 Review of Systems 2 Review of Systems: A 10 system review of systems was completed on the patient and is negative except for what is stated in the HPI. Nursing and ancillary documentation was reviewed. PMFSH Past Medical History Medical History Healthy adult male Surgical History Surgical History No history of previous surgery Exam 2 Narrative: GENERAL: Well-appearing, well-nourished, and in no acute distress. HEAD: Normocephalic, atraumatic. EYES: PERRLA and EOMI. ENT: Nares clear, no rhinorrhea or epistaxis. Mucous membranes moist. NECK: Supple. CHEST: Clear to auscultation. No respiratory distress. HEART: Regular rate and rhythm. No murmur heard. Normal peripheral pulses. ABDOMEN: Soft, nontender, nondistended, normal active bowel sounds. EXTREMITIES: Normal range of motion. No edema. SKIN: Warm, dry, no rash. NEURO: No focal deficits. Alert and oriented x3. PSYCH: Normal mood and affect. Course Vital Signs Vital signs: Vital Signs Temperature 36.9 C 07/13/25 17:15 Pulse Rate 106 H 07/13/25 17:15 Respiratory Rate 18 07/13/25 17:15 Blood Pressure 145/104 H 07/13/25 17:15 Pulse Oximetry 97 07/13/25 17:15 Temperature 36.9 C 07/13/25 17:15 Pulse Rate 106 H 07/13/25 17:15 Respiratory Rate 18 07/13/25 17:15 Blood Pressure 145/104 H 07/13/25 17:15 Pulse Oximetry 97 07/13/25 17:15 Medical Decision Making [facility] [place] Narrative Medical decision making narrative: Differential diagnosis includes dehydration, infection, hepatitis, HIV, viral illness, intra-abdominal infection, cholangitis Laboratory studies were obtained [place] [id number] electrolytes showed a creatinine of 1.6 and BUN of 26 bilirubin was 2.4 AST and ALT were 106 and 172 respectively CK was 600 urinalysis showed 3+ ketones positive nitrate positive bilirubin no white blood cells present and no bacteria urine tox was just positive for cannabinoids the patient was negative for mono and negative for strep CT scan of the abdomen pelvis showed some hepatic steatosis but otherwise was within normal limits The case was discussed with the hospitalist the patient received further care in the inpatient setting Vital Signs Vital Signs: Vital Signs Temperature 36.9 C 07/13/25 17:15 Pulse Rate 106 H 07/13/25 17:15 Respiratory Rate 18 07/13/25 17:15 Blood Pressure 145/104 H 07/13/25 17:15 Pulse Oximetry 97 07/13/25 17:15 Temperature 36.9 C 07/13/25 17:15 Pulse Rate 106 H 07/13/25 17:15 Respiratory Rate 18 07/13/25 17:15 Blood Pressure 145/104 H 07/13/25 17:15 Pulse Oximetry 97 07/13/25 17:15 Lab Data 07/13/25 19:59 07/13/25 19:59 Labs: Lab Results 07/13/25 07/13/25 07/13/25 Range/Units 19:59 19:59 20:13 WBC 21.1 H (4.5-10.0) K/mm3 RBC 5.72 (4.6-6.20) M/mm3 Hgb 16.4 (14.0-18.0) g/dL Hct 49.2 (42.0-52.0) % MCV 86.0 (80-100) fl MCH 28.7 (26-34) pg MCHC 33.3 (32-36) g/dl RDW 12.9 (11.5-14.5) % Plt Count 386 H (150-375) k/mm3 MPV 10.9 H (7.4-10.4) fl Immature Gran % (Auto) Not Reportable Neut % (Auto) Not Reportable Lymph % (Auto) Not Reportable [place] % (Auto) Not Reportable Eos % (Auto) Not Reportable Baso % (Auto) Not Reportable Lymph # (Auto) Not Reportable [place] # (Auto) Not Reportable Eos # (Auto) Not Reportable Baso # (Auto) Not Reportable Abs Immat Gran (auto) Not Reportable Absolute Neuts (auto) Not Reportable Absolute Nucleated RBC Not Reportable Total Counted 100 Neutrophils % (Manual) 85 H (46-73) % Band Neutrophils % 2 (0-6) % Lymphocytes % (Manual) 6.0 L (18-44) % Monocytes % (Manual) 6 (3-9) % Basophils % (Manual) 1 (0-1) % Nucleated RBC % Not Reportable Abs Neuts (Manual) 18.35 H (1.3-6.7) K/mm3 Abs Lymphs (Manual) 1.26 (1.1-4.5) K/mm3 Abs Monocytes (Manual) 1.26 H (0.1-0.90) K/mm3 Abs Basophils (Manual) 0.21 H (0.0-0.1) K/mm3 Platelet Estimate Slightly increased (Adequate) Schistocytes None seen PT 13.8 (11.1-14.7) Seconds INR 1.1 Sodium 143 (137-145) mmol/L Potassium 4.0 (3.4-5.0) mmol/L Chloride 103 (98-107) mmol/L Carbon Dioxide 20 L (22-30) mmol/L Anion Gap 20 H (4-12) mmol/L BUN 26 H (9-20) mg/dL Creatinine 1.60 H (0.7-1.3) mg/dL Estim Creat Clear Calc 66 ml/min Estimated GFR 55 L (59 - ) Glucose 139 H (65-110) mg/dL Lactic Acid (0.7-2.0) mmol/L Calcium 10.7 H (8.4-10.2) mg/dL Magnesium 2.3 (1.6-2.3) mg/dL Total Bilirubin 2.4 H (0.2-1.3) mg/dL AST 106 H (17-59) U/L ALT 172 H (6-50) U/L Alkaline Phosphatase 121 (38-126) U/L Total Creatine Kinase 600 H Cancelled (55-170) U/L Total Protein 10.4 H (6.3-8.2) g/dL Albumin 5.9 H (3.5-5.1) g/dL Lipase 99 (23-300) U/L Procalcitonin 0.1 ng/mL Urine Color Dark yellow (Yellow) Urine Appearance Cloudy H (Clear) Urine pH 5.5 (5.0-9.0) Ur Specific [place] 1.043 H (1.001-1.035) Urine Protein 3+ H (Negative) mg/dL Urine Glucose (UA) Negative (Negative) mg/dL Urine Ketones 3+ H (Negative) mg/dL Ur Blood (Man) Negative (Negative) Urine Nitrate Positive H (Negative) Urine Bilirubin 2+ H (Negative) Urine Urobilinogen 1.0 (<2.0) mg/dL Leukocyte Esterase Rfl Trace H (Negative) POOJA/UL Urine RBC 0-2 (0-2) /hpf Urine WBC 0-5 (0-3) /hpf Ur Squamous Epith Cells Few (Few) /hpf Urine Bacteria None seen /hpf Urine Casts >20 Hyaline Casts Present (None) /lpf Urine Opiates Screen Negative (Negative) Urine Methadone Screen Negative (Negative) Ur Barbiturates Screen Negative (Negative) Ur Phencyclidine Scrn Negative (Negative) Ur Amphetamine Screen Negative (Negative) U Benzodiazepines Scrn Negative (Negative) Urine Cocaine Screen Negative (Negative) U Cannabinoids Screen Positive A (Negative) Monoscreen Negative (Negative) Group A Strep (PCR) (Negative) 07/13/25 Range/Units 20:46 WBC (4.5-10.0) K/mm3 RBC (4.6-6.20) M/mm3 Hgb (14.0-18.0) g/dL Hct (42.0-52.0) % MCV (80-100) fl MCH (26-34) pg MCHC (32-36) g/dl RDW (11.5-14.5) % Plt Count (150-375) k/mm3 MPV (7.4-10.4) fl Immature Gran % (Auto) Neut % (Auto) Lymph % (Auto) [place] % (Auto) Eos % (Auto) Baso % (Auto) Lymph # (Auto) [place] # (Auto) Eos # (Auto) Baso # (Auto) Abs Immat Gran (auto) Absolute Neuts (auto) Absolute Nucleated RBC Total Counted Neutrophils % (Manual) (46-73) % Band Neutrophils % (0-6) % Lymphocytes % (Manual) (18-44) % Monocytes % (Manual) (3-9) % Basophils % (Manual) (0-1) % Nucleated RBC % Abs Neuts (Manual) (1.3-6.7) K/mm3 Abs Lymphs (Manual) (1.1-4.5) K/mm3 Abs Monocytes (Manual) (0.1-0.90) K/mm3 Abs Basophils (Manual) (0.0-0.1) K/mm3 Platelet Estimate (Adequate) Schistocytes PT (11.1-14.7) Seconds INR Sodium (137-145) mmol/L Potassium (3.4-5.0) mmol/L Chloride (98-107) mmol/L Carbon Dioxide (22-30) mmol/L Anion Gap (4-12) mmol/L BUN (9-20) mg/dL Creatinine (0.7-1.3) mg/dL Estim Creat Clear Calc ml/min Estimated GFR (59 - ) Glucose (65-110) mg/dL Lactic Acid 1.4 (0.7-2.0) mmol/L Calcium (8.4-10.2) mg/dL Magnesium (1.6-2.3) mg/dL Total Bilirubin (0.2-1.3) mg/dL AST (17-59) U/L ALT (6-50) U/L Alkaline Phosphatase (38-126) U/L Total Creatine Kinase (55-170) U/L Total Protein (6.3-8.2) g/dL Albumin (3.5-5.1) g/dL Lipase (23-300) U/L Procalcitonin ng/mL Urine Color (Yellow) Urine Appearance (Clear) Urine pH (5.0-9.0) Ur Specific [place] (1.001-1.035) Urine Protein (Negative) mg/dL Urine Glucose (UA) (Negative) mg/dL Urine Ketones (Negative) mg/dL Ur Blood (Man) (Negative) Urine Nitrate (Negative) Urine Bilirubin (Negative) Urine Urobilinogen (<2.0) mg/dL Leukocyte Esterase Rfl (Negative) POOJA/UL Urine RBC (0-2) /hpf Urine WBC (0-3) /hpf Ur Squamous Epith Cells (Few) /hpf Urine Bacteria /hpf Urine Casts Hyaline Casts (None) /lpf Urine Opiates Screen (Negative) Urine Methadone Screen (Negative) Ur Barbiturates Screen (Negative) Ur Phencyclidine Scrn (Negative) Ur Amphetamine Screen (Negative) U Benzodiazepines Scrn (Negative) Urine Cocaine Screen (Negative) U Cannabinoids Screen (Negative) Monoscreen (Negative) Group A Strep (PCR) Not detected (Negative) Discharge Plan Discharge Clinical Impression: Leukocytosis, Elevated liver enzymes, Acute kidney injury Patient Disposition: Still a Patient Condition: Stable Patient Language: Czech Prescriptions: No Action fluticasone propionate [Flonase Allergy Relief] 50 mcg/actuation spray,suspension 1 spray intranasal DAILY Qty: 16 0RF Rx Instructions: administer into each nostril Follow-up/Referrals: PHYSICIAN,[employer]SEM[employer] LINE WORKER [Primary Care Provider, Internal Medicine]
[2025-07-13] MEDS: CEFEPIME 2 GM in SODIUM CHLORIDE 0.9% IV 50 ML 100 ML IVPB (23:01)
[2025-07-13] MEDS: SODIUM CHLORIDE 0.9% IV 1,000 ML 125 ML IV CONT (23:01)
[2025-07-13] MEDS: VANCOMYCIN 1,750 MG/NS 500 ML 1,750 MG/500 ML BAG 250 MG IVPB (23:31)
[2025-07-13 23:47] LABS: Hepatitis B Surface Antigen Negative (Negative)
[2025-07-13 23:53] LABS: HAV RESULT Negative (Negative); Hepatitis B Core IgM Result Negative (Negative)
[2025-07-13 23:59] LABS: HIV 1/2 Ab P24 Ag Result Negative (Negative)
[2025-07-14] VITALS (32 sets, daily range): BP systolic 119–159; BP diastolic 56–84; PULSE 68–115; RESP 16–31; TEMP 37.4; O2SAT 92–100
[2025-07-14 00:21] LABS: MRSA (PCR) NOT DETECTED (NOT DETECTE)
--- NOTE | 2025-07-14 01:32 | PM.IMHP ---
H&P: HPI History of Present Illness Date/Time: 07/14/25 01:32 Chief Complaint: Nausea and vomiting Narrative: This is a 20-year-old male patient with no previous medical history. The patient stated that he is having muscle cramps throughout his entire body and believes that he may be dehydrated. Today he noticed that his urine was very dark and also that he said nontender lymph nodes to the cervical area for several months. His white count was noticed to be 21.4. Platelet count 386. Neutrophil percentage 85. BUN 26 with a creatinine 1.6. His GFR is 55. Glucose 139. Total bilirubin 2.4, AST 106, ALT 172, total creatinine kinase 600. Urine is cloudy with 3+ urine protein, 3+ ketones, positive nitrates, urine bilirubin 2+, and leukocyte esterase trace. Toxicology screen is all negative except for cannabis. Serology hepatitis panel is negative, mono screen negative and HIV negative. Group a strep not detected. [place] screen negative. The patient was given vancomycin in the emergency room and he had allergic reaction with hives to his neck and face. The vancomycin was stopped and he was given Benadryl, Decadron, and Pepcid. Chest x-ray was read as no acute lung findings. Abdomen/pelvis CT was read as no acute abnormality is noted in the abdomen and pelvis. Hepatic steatosis. Review of Systems Constitutional: Constitutional: Reports as per HPI and Reports no additional constitutional complaints Eyes: Eyes: Reports as per HPI and Reports no additional eye complaints ENT: Reports system reviewed and no additional complaints, except as documented and Reports Normal hearing present Cardiovascular: Cardiovascular: Reports no additional cardiovascular complaints Respiratory: Respiratory: Reports as per HPI and Reports no additional respiratory complaints Gastrointestinal: Gastrointestinal: Reports as per HPI and Reports no additional gastrointestinal complaints Musculoskeletal: Musculoskeletal: Reports no additional musculoskeletal complaints Integumentary/Breasts: Skin/Breast: Reports system reviewed and no additional complaints, except as docu Neurologic: Reports system reviewed and no additional complaints, except as documented and Reports Normal hearing present Psychiatric: Psychiatric: Reports no additional psychiatric complaints and Reports as per HPI Hematologic/Lymphatic: Hematologic/Lymphatic: Reports no additional hematologic/lymphatic complaints Allergic/Immunologic: Allergic/Immunologic: Reports no additional allergic/immunologic complaints [facility] Past Medical History Medical History (Updated 07/13/25 @ 22:47 by Ken Johns MD) Healthy adult male Surgical History Surgical History (Updated 07/14/25 @ 01:33 by Angelica Vera APRN) History of surgery on arm right arm Family History Family History (Updated 07/14/25 @ 01:33 by Angelica Vera APRN) Mother Breast cancer Social History Social History (Updated 07/14/25 @ 03:37 by Angelica Vera APRN) Social History: He lives with his parents . He is single . He works at an [employer]. He uses marijuana. Code status: Full code Meds Home Medications and Allergies Home Medications ?Medication ?Instructions ?Recorded ?Confirmed ?Type fluticasone propionate 50 1 spray intranasal DAILY #16 grams 03/16/25 Rx mcg/actuation nasal spray,suspension (Flonase Allergy Relief) Allergies Allergy/AdvReac Type Severity Reaction Status Date / Time vancomycin Allergy Intermediate Hives Verified 07/14/25 02:41 Vital Signs Vital Signs - 24 hr 07/13/25 17:15 07/13/25 20:01 07/13/25 21:07 Temperature 98.4 F Pulse Rate 106 H 100 107 H Respiratory Rate 18 15 29 H Blood Pressure 145/104 H Pulse Oximetry 97 97 100 07/13/25 21:15 07/13/25 21:43 07/13/25 21:45 Temperature Pulse Rate 97 101 H 95 Respiratory Rate 25 H 27 H 16 Blood Pressure Pulse Oximetry 97 98 99 07/13/25 22:00 07/13/25 22:15 07/13/25 22:35 Temperature Pulse Rate 103 H 89 93 Respiratory Rate 23 H 27 H 17 Blood Pressure Pulse Oximetry 97 97 07/13/25 22:45 07/13/25 23:00 07/13/25 23:15 Temperature Pulse Rate 79 84 112 H Respiratory Rate 22 H 16 23 H Blood Pressure Pulse Oximetry 96 99 98 07/13/25 23:30 07/13/25 23:45 07/14/25 00:00 Temperature Pulse Rate 86 90 89 Respiratory Rate 19 20 20 Blood Pressure Pulse Oximetry 97 100 98 07/14/25 00:18 07/14/25 00:45 07/14/25 01:00 Temperature Pulse Rate 101 H 104 H 114 H Respiratory Rate 23 H 20 23 H Blood Pressure Pulse Oximetry Exam Const: General: cooperative, healthy appearing, comfortable, no acute distress, well developed, awake, Physically active, average body habitus and well nourished Nutritional Appearance: average body habitus and well nourished Orientation/consciousness: oriented to person, oriented to place, oriented to time and patient oriented x3 Limitations: no limitations HENMT: Head: normal to inspection, No palpable skull fracture present, normocephalic, atraumatic and abrasion Ears: hearing grossly normal bilaterally and external ears normal Mouth: Yes Normal oral and palatal mucosa present Throat: posterior oropharynx normal Other: He has large tonsils but they are not erythematous and no white patches are noted. Anterior cervical lymph nodes enlarged and nontender. Eyes: General: appearance normal, both eyes and all related structures Alignment and Position: alignment normal Periorbital: periorbital findings normal Neck: Neck: normal visual inspection, full ROM, trachea midline and supple Lymphatic: lymphadenopathy (Anterior cervical chain nontender) Chest: Chest palpation & inspection: normal inspection of the chest Resp: Effort & Inspection: normal respiratory effort Auscultation: clear to auscultation bilaterally Cardio: Palpation: normal PMI Rate: tachycardic Rhythm: regular rhythm Heart sounds: S1 normal heart sound present and S2 normal heart sound present Peripheral pulses: Peripheral pulses 2+ throughout GI: Inspection: normal to inspection Auscultation: normal bowel sounds Rectal Exam: deferred : General: Yes no CVA tenderness Back/Spine/Pelvis: Back: no CVA tenderness Cervical Spine: cervical ROM normal Thoracic/Lumbar Spine: thoracic and lumbar spine normal to inspection Pelvis: no pain with anterior-posterior compression Skin: General skin exam: normal color Lesions: no lesions Rashes: no rashes Trauma: no lacerations or abrasions Wounds: no wounds Hair: normal Nails: normal Neuro: General: oriented to person, oriented to place, oriented to time and patient oriented x3 Cranial nerves: Yes Equal, round and reactive pupils present and Yes Normal hearing present Cognition (Neuro): normal cognition Speech: normal speech Gait exam (Neuro): Normal gait present Motor exam (neuro): 5/5 motor strength present throughout Sensory Exam: normal sensation Extrem: General: normal to inspection Right upper extremity: normal to inspection and shoulder/upper arm Left upper extremity: normal to inspection and shoulder/upper arm Right lower extremity: normal to inspection Left lower extremity: normal to inspection Psych: Appearance: grossly normal Mental Status: mental status grossly normal Speech and movement: Normal speech and movement present Affect: normal affect Attitude: cooperative Thought process: Normal thought process present Thought content: Yes Normal thought content present Insight: Good insight present (Psych) Judgement: Good judgement present (Psych) H&P: Results Labs Labs: Short CBC 07/13/25 Range/Units 19:59 WBC 21.1 H (4.5-10.0) K/mm3 Hgb 16.4 (14.0-18.0) g/dL Hct 49.2 (42.0-52.0) % Plt Count 386 H (150-375) k/mm3 BMP 07/13/25 19:59 Sodium 143 Potassium 4.0 Chloride 103 Carbon Dioxide 20 L BUN 26 H Creatinine 1.60 H Glucose 139 H Calcium 10.7 H Cardiac Enzymes 07/13/25 07/13/25 Range/Units 19:59 19:59 Total Creatine Kinase 600 H Cancelled (55-170) U/L Liver Function 07/13/25 Range/Units 19:59 Total Bilirubin 2.4 H (0.2-1.3) mg/dL AST 106 H (17-59) U/L ALT 172 H (6-50) U/L Alkaline Phosphatase 121 (38-126) U/L Albumin 5.9 H (3.5-5.1) g/dL Urine 07/13/25 Range/Units 20:13 Urine Color Dark yellow (Yellow) Urine Appearance Cloudy H (Clear) Urine pH 5.5 (5.0-9.0) Ur Specific [place] 1.043 H (1.001-1.035) Urine Protein 3+ H (Negative) mg/dL Urine Glucose (UA) Negative (Negative) mg/dL Imaging CT scan - abdomen: Radiologist's impression: Impressions Chest X-Ray 07/13/25 20:39 IMPRESSION: No acute lung findings.] [ ] Abdomen/Pelvis CT 07/13/25 21:45 IMPRESSION: No acute abnormality is noted in the abdomen and pelvis. Hepatic steatosis. All CT scans at this facility are performed using low dose modulation techniques as appropriate to perform exam including the following: automated exposure control; use of iterative reconstruction technique; adjustment of the mA and/or kV according to patient size (this includes techniques or standardized protocols for targeted exams where dose is matched to indication/reason for exam). Assessment and Plan Assessment and plan (1) Leukocytosis: Code(s): D72.829 - Elevated white blood cell count, unspecified Status: Acute Assessment and Plan: -white count is noted to be 21.1. Unable to find any source of infection at this time. His strep a was negative. CT of the abdomen show steatosis. -the patient was empirically started on vancomycin and cefepime. The patient had allergic reaction to the vancomycin in the emergency room. He was given Decadron (after this cbc was resulted.), Benadryl and Pepcid for the allergic reaction. .-cultures are pending -lactic is normal at 1.4. -ultrasound of soft tissue of the head neck has been ordered. -Hematology consult would greatly be appreciated for further recommendation. -no source of infection has been found at this time. -the patient stated that he has nontender cervical lymph nodes. (2) Acute kidney injury: Code(s): N17.9 - Acute kidney failure, unspecified Status: Acute Assessment and Plan: -the patient stated that he feels that he may have been dehydrated. -daily BMPs -his creatinine is 1.6 BUN is 26. GFR is 55. -continue with IV fluids. -if no improvement may consider renal ultrasound. -if no improvement may consider consulting Nephrology (3) Elevated liver enzymes: Code(s): R74.8 - Abnormal levels of other serum enzymes Status: Acute Assessment and Plan: -CT of the abdomen shows steatosis. 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 -hepatitis panel was negative. -could possibly just be due to the steatosis. Quality VTE Prophylaxis VTE prophylaxis: mechanical ordered
[2025-07-14] MEDS: dexAMETHasone SOD PHOS INJ 10 MG/ML 1 ML VIAL IV PUSH (01:37)
[2025-07-14] MEDS: FAMOTIDINE 20 MG/2 ML VIAL IV PUSH (01:37)
--- NOTE | 2025-07-14 02:37 | PC.NURSE ---
01:15 - Pt reports itching around his neck and face. Vancomycin stopped immediately. Hives/redness noted. Benadryl given per ER docs verbal order, famotidine and Decadron given per hospitalist. Hospitalist at bedside. Pt's symptoms improving rapidly.
[2025-07-14 05:36] LABS: Hematocrit 42.4 % (42.0-52.0); Hemoglobin 13.9 g/dL (14.0-18.0); Mean Corpuscular HGB Conc 32.8 g/dl (32-36); Mean Corpuscular Hemoglobin 28.7 pg (26-34); Mean Corpuscular Volume 87.6 fl (80-100); Platelet Count Result 323 k/mm3 (150-375); Red Blood Count 4.84 M/mm3 (4.6-6.20); White Blood Count 16.2 K/mm3 (4.5-10.0)
[2025-07-14 05:52] LABS: Anion Gap 13 mmol/L (4-12); Blood Urea Nitrogen 21 mg/dL (9-20); Calcium 8.8 mg/dL (8.4-10.2); Carbon Dioxide 18 mmol/L (22-30); Chloride 109 mmol/L (98-107); Estimated CRCL calculation 99 ml/min; Estimated Glomerular Filt Rate > 60; Glucose 122 mg/dL (65-110); Potassium 4.5 mmol/L (3.4-5.0); Sodium 140 mmol/L (137-145)
[2025-07-14] MEDS: SODIUM CHLORIDE 0.9% IV 1,000 ML 125 ML IV CONT (06:29)
[2025-07-14] MEDS: CEFEPIME 2 GM in SODIUM CHLORIDE 0.9% IV 50 ML 100 ML IVPB ×2 (06:30→15:33)
--- NOTE | 2025-07-14 09:22 | PM.IMPN ---
Progress Note: A&P Assessment and Plan (1) Leukocytosis: Code(s): D72.829 - Elevated white blood cell count, unspecified Status: Acute Assessment and Plan: -white count is noted to be 21.1. Unable to find any source of infection at this time. His strep a was negative. CT of the abdomen show steatosis. -the patient was empirically started on vancomycin and cefepime. The patient had allergic reaction to the vancomycin in the emergency room. He was given Decadron (after this cbc was resulted.), Benadryl and Pepcid for the allergic reaction. .-cultures are pending -lactic is normal at 1.4. -ultrasound of soft tissue of the head neck has been ordered. -Hematology consult would greatly be appreciated for further recommendation. 07/14: -Pending heme consult -Pending US head/neck soft tissue (2) Acute kidney injury: Code(s): N17.9 - Acute kidney failure, unspecified Status: Acute Assessment and Plan: -the patient stated that he feels that he may have been dehydrated. -daily BMPs -his creatinine is 1.6 BUN is 26. GFR is 55. -continue with IV fluids. -if no improvement may consider renal ultrasound. 07/14: -Improvement of creatinine at 1.05 & BUN at 21, GFR >60 -Cont with IVF (3) Elevated liver enzymes: Code(s): R74.8 - Abnormal levels of other serum enzymes Status: Acute Assessment and Plan: -CT of the abdomen shows steatosis. -liver enzymes could also possibly be elevated due to his environmental workplace. -hepatitis panel was negative. -could possibly just be due to the steatosis. 07/14: -CK also elevated, continue IVF and daily labs Subjective Date/time seen: 07/14/25 Review of Systems Constitutional: Constitutional: Reports as per HPI and Reports no additional constitutional complaints Eyes: Eyes: Reports as per HPI and Reports no additional eye complaints ENT: Reports system reviewed and no additional complaints, except as documented and Reports Normal hearing present Cardiovascular: Cardiovascular: Reports no additional cardiovascular complaints Respiratory: Respiratory: Reports as per HPI and Reports no additional respiratory complaints Gastrointestinal: Gastrointestinal: Reports as per HPI and Reports no additional gastrointestinal complaints Musculoskeletal: Musculoskeletal: Reports no additional musculoskeletal complaints Integumentary/Breasts: Skin/Breast: Reports system reviewed and no additional complaints, except as docu Neurologic: Reports system reviewed and no additional complaints, except as documented and Reports Normal hearing present Psychiatric: Psychiatric: Reports no additional psychiatric complaints and Reports as per HPI Hematologic/Lymphatic: Hematologic/Lymphatic: Reports no additional hematologic/lymphatic complaints Allergic/Immunologic: Allergic/Immunologic: Reports no additional allergic/immunologic complaints Exam Const: General: cooperative, healthy appearing, comfortable, no acute distress, well developed, awake, Physically active, average body habitus and well nourished Nutritional Appearance: average body habitus and well nourished Orientation/consciousness: oriented to person, oriented to place, oriented to time and patient oriented x3 Limitations: no limitations HENMT: Head: normal to inspection, No palpable skull fracture present, normocephalic, atraumatic and abrasion Ears: hearing grossly normal bilaterally and external ears normal Mouth: Yes Normal oral and palatal mucosa present Throat: posterior oropharynx normal Other: He has large tonsils but they are not erythematous and no white patches are noted. Anterior cervical lymph nodes enlarged and nontender. Eyes: General: appearance normal, both eyes and all related structures Alignment and Position: alignment normal Periorbital: periorbital findings normal Pupils: Equal, round and reactive pupils present Neck: Neck: normal visual inspection, full ROM, trachea midline and supple Lymphatic: lymphadenopathy (Anterior cervical chain nontender) Chest: Chest palpation & inspection: normal inspection of the chest Resp: Effort & Inspection: normal respiratory effort Auscultation: clear to auscultation bilaterally Percussion: percussion normal Cardio: Palpation: normal PMI Rate: regular rate and tachycardic Rhythm: regular rhythm Heart sounds: S1 normal heart sound present and S2 normal heart sound present Peripheral pulses: Peripheral pulses 2+ throughout GI: Inspection: normal to inspection Auscultation: normal bowel sounds Rectal Exam: deferred : General: Yes no CVA tenderness Back/Spine/Pelvis: Back: no CVA tenderness Cervical Spine: cervical ROM normal Thoracic/Lumbar Spine: thoracic and lumbar spine normal to inspection Pelvis: no pain with anterior-posterior compression Skin: General skin exam: normal color Lesions: no lesions Rashes: no rashes Trauma: no lacerations or abrasions Wounds: no wounds Hair: normal Nails: normal Neuro: General: oriented to person, oriented to place, oriented to time and patient oriented x3 Cranial nerves: Yes Equal, round and reactive pupils present and Yes Normal hearing present Cognition (Neuro): normal cognition Speech: normal speech Gait exam (Neuro): Normal gait present Motor exam (neuro): 5/5 motor strength present throughout Sensory Exam: normal sensation Extrem: General: normal to inspection Right upper extremity: normal to inspection and shoulder/upper arm Left upper extremity: normal to inspection and shoulder/upper arm Right lower extremity: normal to inspection Left lower extremity: normal to inspection Psych: Appearance: grossly normal Mental Status: mental status grossly normal Speech and movement: Normal speech and movement present Affect: normal affect Attitude: cooperative Thought process: Normal thought process present Insight: Good insight present (Psych) Judgement: Good judgement present (Psych) Objective Data Vital Signs Vital Signs: Vital Signs - 24 hr 07/13/25 17:15 07/13/25 20:01 07/13/25 21:07 Temperature 98.4 F Pulse Rate 106 H 100 107 H Respiratory Rate 18 15 29 H Blood Pressure 145/104 H Pulse Oximetry 97 97 100 07/13/25 21:15 07/13/25 21:43 07/13/25 21:45 Temperature Pulse Rate 97 101 H 95 Respiratory Rate 25 H 27 H 16 Blood Pressure Pulse Oximetry 97 98 99 07/13/25 22:00 07/13/25 22:15 07/13/25 22:35 Temperature Pulse Rate 103 H 89 93 Respiratory Rate 23 H 27 H 17 Blood Pressure Pulse Oximetry 97 97 07/13/25 22:45 07/13/25 23:00 07/13/25 23:15 Temperature Pulse Rate 79 84 112 H Respiratory Rate 22 H 16 23 H Blood Pressure Pulse Oximetry 96 99 98 07/13/25 23:30 07/13/25 23:45 07/14/25 00:00 Temperature Pulse Rate 86 90 89 Respiratory Rate 19 20 20 Blood Pressure Pulse Oximetry 97 100 98 07/14/25 00:18 07/14/25 00:45 07/14/25 01:00 Temperature Pulse Rate 101 H 104 H 114 H Respiratory Rate 23 H 20 23 H Blood Pressure Pulse Oximetry 07/14/25 01:30 07/14/25 01:45 07/14/25 05:02 Temperature Pulse Rate 109 H 90 68 Respiratory Rate 30 H 29 H 20 Blood Pressure 119/70 Pulse Oximetry 99 92 99 07/14/25 05:15 07/14/25 07:11 07/14/25 07:14 Temperature Pulse Rate 99 111 H 104 H Respiratory Rate 19 21 H 31 H Blood Pressure 149/70 H Pulse Oximetry 100 99 98 Intake/Output Intake/Output: Intake & Output 07/11/25 07/12/25 07/13/25 07/14/25 23:59 23:59 23:59 23:59 Intake Total 1050 1491.7 Balance 1050 1491.7 Meds/Results Medications: Active Medications Generic Name Dose Route Start Last Admin Trade Name Freq PRN Reason Stop Dose Admin Cefepime HCl 2 gm/ Sodium 50 mls @ 100 mls/hr 07/14/25 07:00 07/14/25 07:00 Chloride IVPB Infused Q8H DANIEL Infusion Sodium Chloride 1,000 mls @ 125 mls/hr 07/13/25 22:40 07/14/25 06:29 Normal Saline Iv IV CONT 125 mls/hr .Q8H DANIEL Administration Radiology Results: ITS Impressions Chest X-Ray 07/13/25 20:39 IMPRESSION: No acute lung findings.] [ ] Abdomen/Pelvis CT 07/13/25 21:45 IMPRESSION: No acute abnormality is noted in the abdomen and pelvis. Hepatic steatosis. All CT scans at this facility are performed using low dose modulation techniques as appropriate to perform exam including the following: automated exposure control; use of iterative reconstruction technique; adjustment of the mA and/or kV according to patient size (this includes techniques or standardized protocols for targeted exams where dose is matched to indication/reason for exam). Head/Neck Ultrasound 07/14/25 09:02 IMPRESSION: 1. Normal bilateral jugular chain lymph nodes. No pathologically enlarged lymphadenopathy or other abnormal masses or fluid collections identified. Labs Labs: Laboratory Results - last 24 hr 07/13/25 07/13/25 07/13/25 19:59 19:59 20:13 WBC 21.1 H RBC 5.72 Hgb 16.4 Hct 49.2 MCV 86.0 MCH 28.7 MCHC 33.3 RDW 12.9 Plt Count 386 H MPV 10.9 H Immature Gran % (Auto) Not Reportable Neut % (Auto) Not Reportable Lymph % (Auto) Not Reportable [place] % (Auto) Not Reportable Eos % (Auto) Not Reportable Baso % (Auto) Not Reportable Lymph # (Auto) Not Reportable Maries # (Auto) Not Reportable Eos # (Auto) Not Reportable Baso # (Auto) Not Reportable Abs Immat Gran (auto) Not Reportable Absolute Neuts (auto) Not Reportable Absolute Nucleated RBC Not Reportable Total Counted 100 Neutrophils % (Manual) 85 H Band Neutrophils % 2 Lymphocytes % (Manual) 6.0 L Monocytes % (Manual) 6 Basophils % (Manual) 1 Nucleated RBC % Not Reportable Abs Neuts (Manual) 18.35 H Abs Lymphs (Manual) 1.26 Abs Monocytes (Manual) 1.26 H Abs Basophils (Manual) 0.21 H Platelet Estimate Slightly increased Schistocytes None seen PT 13.8 INR 1.1 Sodium 143 Potassium 4.0 Chloride 103 Carbon Dioxide 20 L Anion Gap 20 H BUN 26 H Creatinine 1.60 H Estim Creat Clear Calc 66 Estimated GFR 55 L Glucose 139 H Lactic Acid Calcium 10.7 H Magnesium 2.3 Total Bilirubin 2.4 H AST 106 H ALT 172 H Alkaline Phosphatase 121 Total Creatine Kinase 600 H Cancelled Total Protein 10.4 H Albumin 5.9 H Lipase 99 Procalcitonin 0.1 Urine Color Dark yellow Urine Appearance Cloudy H Urine pH 5.5 Ur Specific [place] 1.043 H Urine Protein 3+ H Urine Glucose (UA) Negative Urine Ketones 3+ H Ur Blood (Man) Negative Urine Nitrate Positive H Urine Bilirubin 2+ H Urine Urobilinogen 1.0 Leukocyte Esterase Rfl Trace H Urine RBC 0-2 Urine WBC 0-5 Ur Squamous Epith Cells Few Urine Bacteria None seen Urine Casts >20 Hyaline Casts Present Nasal MRSA (PCR) Urine Opiates Screen Negative Urine Methadone Screen Negative Ur Barbiturates Screen Negative Ur Phencyclidine Scrn Negative Ur Amphetamine Screen Negative U Benzodiazepines Scrn Negative Urine Cocaine Screen Negative U Cannabinoids Screen Positive A Hepatitis A IgM Ab Negative Hep Bs Antigen Negative Hep B Core IgM Ab Negative Hepatitis C Ab Screen Negative Monoscreen Negative HIV 1&2 Ab/P24 Ag 4thGn Negative Group A Strep (PCR) 07/13/25 07/13/25 07/14/25 20:46 23:06 05:30 WBC 16.2 H RBC 4.84 Hgb 13.9 L Hct 42.4 MCV 87.6 MCH 28.7 MCHC 32.8 RDW 13.2 Plt Count 323 MPV 10.9 H Immature Gran % (Auto) Neut % (Auto) Lymph % (Auto) [place] % (Auto) Eos % (Auto) Baso % (Auto) Lymph # (Auto) [place]ies # (Auto) Eos # (Auto) Baso # (Auto) Abs Immat Gran (auto) Absolute Neuts (auto) Absolute Nucleated RBC Total Counted Neutrophils % (Manual) Band Neutrophils % Lymphocytes % (Manual) Monocytes % (Manual) Basophils % (Manual) Nucleated RBC % Abs Neuts (Manual) Abs Lymphs (Manual) Abs Monocytes (Manual) Abs Basophils (Manual) Platelet Estimate Schistocytes PT INR Sodium 140 Potassium 4.5 Chloride 109 H Carbon Dioxide 18 L Anion Gap 13 H BUN 21 H Creatinine 1.05 Estim Creat Clear Calc 99 Estimated GFR > 60 Glucose 122 H Lactic Acid 1.4 Calcium 8.8 Magnesium Total Bilirubin AST ALT Alkaline Phosphatase Total Creatine Kinase Total Protein Albumin Lipase Procalcitonin Urine Color Urine Appearance Urine pH Ur Specific [place] Urine Protein Urine Glucose (UA) Urine Ketones Ur Blood (Man) Urine Nitrate Urine Bilirubin Urine Urobilinogen Leukocyte Esterase Rfl Urine RBC Urine WBC Ur Squamous Epith Cells Urine Bacteria Urine Casts Hyaline Casts Nasal MRSA (PCR) Not detected Urine Opiates Screen Urine Methadone Screen Ur Barbiturates Screen Ur Phencyclidine Scrn Ur Amphetamine Screen U Benzodiazepines Scrn Urine Cocaine Screen U Cannabinoids Screen Hepatitis A IgM Ab Hep Bs Antigen Hep B Core IgM Ab Hepatitis C Ab Screen Monoscreen HIV 1&2 Ab/P24 Ag 4thGn Group A Strep (PCR) Not detected Quality VTE Prophylaxis VTE prophylaxis: mechanical ordered
--- NOTE | 2025-07-14 13:21 | PC.NURSE ---
Dr. Tao aware of patient admission, and will see in ED.
[2025-07-14 14:06] LABS: Hematocrit 43.3 % (42.0-52.0); Hemoglobin 14.2 g/dL (14.0-18.0); Mean Corpuscular HGB Conc 32.8 g/dl (32-36); Mean Corpuscular Hemoglobin 28.9 pg (26-34); Mean Corpuscular Volume 88.0 fl (80-100); Platelet Count Result 330 k/mm3 (150-375); Red Blood Count 4.92 M/mm3 (4.6-6.20); White Blood Count 14.5 K/mm3 (4.5-10.0)
--- NOTE | 2025-07-14 15:59 | PM.DS ---
DS: Admitting Diagnosis Discharge Date 07/14/2025 Admitting Diagnosis Leukocytosis DS: Discharge Diagnosis Discharge Diagnosis (1) Leukocytosis: Code(s): D72.829 - Elevated white blood cell count, unspecified Status: Acute Assessment and Plan: -white count is noted to be 21.1. Unable to find any source of infection at this time. His strep a was negative. CT of the abdomen show steatosis. -the patient was empirically started on vancomycin and cefepime. The patient had allergic reaction to the vancomycin in the emergency room. He was given Decadron (after this cbc was resulted.), Benadryl and Pepcid for the allergic reaction. .-cultures are pending -lactic is normal at 1.4. -ultrasound of soft tissue of the head neck has been ordered. -Hematology consult would greatly be appreciated for further recommendation. 07/14: -Called dhiraj, Dr. Tao, and he is agreeable for outpt f/u due to pt eager to leave. -US head/neck soft tissue - WDL (2) Acute kidney injury: Code(s): N17.9 - Acute kidney failure, unspecified Status: Acute Assessment and Plan: -the patient stated that he feels that he may have been dehydrated. -daily BMPs -his creatinine is 1.6 BUN is 26. GFR is 55. -continue with IV fluids. -if no improvement may consider renal ultrasound. 07/14: -Improvement of creatinine at 1.05 & BUN at 21, GFR >60 -Cont with IVF -F/u with PCP (3) Elevated liver enzymes: Code(s): R74.8 - Abnormal levels of other serum enzymes Status: Acute Assessment and Plan: -CT of the abdomen shows steatosis. -liver enzymes could also possibly be elevated due to his environmental workplace. -hepatitis panel was negative. -could possibly just be due to the steatosis. 07/14: -CK also elevated, continue IVF and encouraged fluid admin upon d/c Plan Discharge with PCP and heme outpt follow-up for this admission. Pt aware of plan and agrees. DS: Summary Hospital Course Reason for hospitalization: Leukocytosis Hospital Course: This is a 20-year-old male patient with no previous medical history. The patient stated that he is having muscle cramps throughout his entire body and believes that he may be dehydrated. Today he noticed that his urine was very dark and also that he said nontender lymph nodes to the cervical area for several months. His white count was noticed to be 21.4. Platelet count 386. Neutrophil percentage 85. BUN 26 with a creatinine 1.6. His GFR is 55. Glucose 139. Total bilirubin 2.4, AST 106, ALT 172, total creatinine kinase 600. Urine is cloudy with 3+ urine protein, 3+ ketones, positive nitrates, urine bilirubin 2+, and leukocyte esterase trace. Toxicology screen is all negative except for cannabis. Serology hepatitis panel is negative, mono screen negative and HIV negative. Group a strep not detected. [place] screen negative. The patient was given vancomycin in the emergency room and he had allergic reaction with hives to his neck and face. The vancomycin was stopped and he was given Benadryl, Decadron, and Pepcid. Chest x-ray was read as no acute lung findings. Abdomen/pelvis CT was read as no acute abnormality is noted in the abdomen and pelvis. Hepatic steatosis. Heck/neck US yielded no abnormalities. His WBC decreased to 14.[address] Tao ([facility]), called and agreed to outpatient follow-up due to decreasing WBC. While inpatient, pt continued to be on IV hydration and received x2 doses of cefepime. Pt reports that his dark urine and muscle weakness has all resolved. Status at Discharge Overall status at discharge: patient is back to baseline Time Spent with Patient Time attestation: Total time spent providing and/or coordinating discharge services: Exam Const: General: cooperative, healthy appearing, comfortable, no acute distress, well developed, awake, Physically active, average body habitus and well nourished Nutritional Appearance: average body habitus and well nourished Orientation/consciousness: oriented to person, oriented to place, oriented to time and patient oriented x3 Limitations: no limitations HENMT: Head: normal to inspection, No palpable skull fracture present, normocephalic, atraumatic and abrasion Ears: hearing grossly normal bilaterally and external ears normal Mouth: Yes Normal oral and palatal mucosa present Throat: posterior oropharynx normal Other: He has large tonsils but they are not erythematous and no white patches are noted. Non-palpable anterior cervical lymph nodes. Eyes: General: appearance normal, both eyes and all related structures Alignment and Position: alignment normal Periorbital: periorbital findings normal Pupils: Equal, round and reactive pupils present Neck: Neck: normal visual inspection, full ROM, trachea midline and supple Chest: Chest palpation & inspection: normal inspection of the chest Resp: Effort & Inspection: normal respiratory effort Auscultation: clear to auscultation bilaterally Percussion: percussion normal Cardio: Palpation: normal PMI Rate: regular rate and tachycardic Rhythm: regular rhythm Heart sounds: S1 normal heart sound present and S2 normal heart sound present Peripheral pulses: Peripheral pulses 2+ throughout GI: Inspection: normal to inspection Auscultation: normal bowel sounds Rectal Exam: deferred : General: Yes no CVA tenderness Back/Spine/Pelvis: Back: no CVA tenderness Cervical Spine: cervical ROM normal Thoracic/Lumbar Spine: thoracic and lumbar spine normal to inspection Pelvis: no pain with anterior-posterior compression Skin: General skin exam: normal color Lesions: no lesions Rashes: no rashes Trauma: no lacerations or abrasions Wounds: no wounds Hair: normal Nails: normal Neuro: General: oriented to person, oriented to place, oriented to time and patient oriented x3 Cranial nerves: Yes Equal, round and reactive pupils present and Yes Normal hearing present Cognition (Neuro): normal cognition Speech: normal speech Motor exam (neuro): Normal motor muscle tone present throughout Sensory Exam: normal sensation Extrem: General: normal to inspection Right upper extremity: normal to inspection and shoulder/upper arm Left upper extremity: normal to inspection and shoulder/upper arm Right lower extremity: normal to inspection Left lower extremity: normal to inspection Psych: Appearance: grossly normal Mental Status: mental status grossly normal Speech and movement: Normal speech and movement present Affect: normal affect Attitude: cooperative Thought process: Normal thought process present Insight: Good insight present (Psych) Judgement: Good judgement present (Psych) DS: Data Data Completed and Pending Pending studies at discharge: Blood cultures, urine culture Labs on day of discharge: Labs from last 24 hours 07/14/25 07/14/25 07/13/25 13:42 05:30 23:06 WBC 14.5 H 16.2 H RBC 4.92 4.84 Hgb 14.2 13.9 L Hct 43.3 42.4 MCV 88.0 87.6 MCH 28.9 28.7 MCHC 32.8 32.8 RDW 13.3 13.2 Plt Count 330 323 MPV 11.3 H 10.9 H Immature Gran % (Auto) Neut % (Auto) Lymph % (Auto) [place] % (Auto) Eos % (Auto) Baso % (Auto) Lymph # (Auto) [place] # (Auto) Eos # (Auto) Baso # (Auto) Abs Immat Gran (auto) Absolute Neuts (auto) Absolute Nucleated RBC Total Counted Neutrophils % (Manual) Band Neutrophils % Lymphocytes % (Manual) Monocytes % (Manual) Basophils % (Manual) Nucleated RBC % Abs Neuts (Manual) Abs Lymphs (Manual) Abs Monocytes (Manual) Abs Basophils (Manual) Platelet Estimate Schistocytes PT INR Sodium 140 Potassium 4.5 Chloride 109 H Carbon Dioxide 18 L Anion Gap 13 H BUN 21 H Creatinine 1.05 Estim Creat Clear Calc 99 Estimated GFR > 60 Glucose 122 H Lactic Acid Calcium 8.8 Magnesium Total Bilirubin AST ALT Alkaline Phosphatase Total Creatine Kinase Total Protein Albumin Lipase Procalcitonin Urine Color Urine Appearance Urine pH Ur Specific [place] Urine Protein Urine Glucose (UA) Urine Ketones Ur Blood (Man) Urine Nitrate Urine Bilirubin Urine Urobilinogen Leukocyte Esterase Rfl Urine RBC Urine WBC Ur Squamous Epith Cells Urine Bacteria Urine Casts Hyaline Casts Nasal MRSA (PCR) Not detected Urine Opiates Screen Urine Methadone Screen Ur Barbiturates Screen Ur Phencyclidine Scrn Ur Amphetamine Screen U Benzodiazepines Scrn Urine Cocaine Screen U Cannabinoids Screen Hepatitis A IgM Ab Hep Bs Antigen Hep B Core IgM Ab Hepatitis C Ab Screen Monoscreen Histoplasma Ab Imm Diff Pending HIV 1&2 Ab/P24 Ag 4thGn Group A Strep (PCR) 07/13/25 07/13/25 07/13/25 20:46 20:13 19:59 WBC RBC Hgb Hct MCV MCH MCHC RDW Plt Count MPV Immature Gran % (Auto) Neut % (Auto) Lymph % (Auto) [place] % (Auto) Eos % (Auto) Baso % (Auto) Lymph # (Auto) [place] # (Auto) Eos # (Auto) Baso # (Auto) Abs Immat Gran (auto) Absolute Neuts (auto) Absolute Nucleated RBC Total Counted Neutrophils % (Manual) Band Neutrophils % Lymphocytes % (Manual) Monocytes % (Manual) Basophils % (Manual) Nucleated RBC % Abs Neuts (Manual) Abs Lymphs (Manual) Abs Monocytes (Manual) Abs Basophils (Manual) Platelet Estimate Schistocytes PT INR Sodium Potassium Chloride Carbon Dioxide Anion Gap BUN Creatinine Estim Creat Clear Calc Estimated GFR Glucose Lactic Acid 1.4 Calcium Magnesium Total Bilirubin AST ALT Alkaline Phosphatase Total Creatine Kinase Cancelled Total Protein 10.4 H Albumin 5.9 H Lipase 99 Procalcitonin 0.1 Urine Color Dark yellow Urine Appearance Cloudy H Urine pH 5.5 Ur Specific [place] 1.043 H Urine Protein 3+ H Urine Glucose (UA) Negative Urine Ketones 3+ H Ur Blood (Man) Negative Urine Nitrate Positive H Urine Bilirubin 2+ H Urine Urobilinogen 1.0 Leukocyte Esterase Rfl Trace H Urine RBC 0-2 Urine WBC 0-5 Ur Squamous Epith Cells Few Urine Bacteria None seen Urine Casts >20 Hyaline Casts Present Nasal MRSA (PCR) Urine Opiates Screen Negative Urine Methadone Screen Negative Ur Barbiturates Screen Negative Ur Phencyclidine Scrn Negative Ur Amphetamine Screen Negative U Benzodiazepines Scrn Negative Urine Cocaine Screen Negative U Cannabinoids Screen Positive A Hepatitis A IgM Ab Negative Hep Bs Antigen Negative Hep B Core IgM Ab Negative Hepatitis C Ab Screen Negative Monoscreen Negative Histoplasma Ab Imm Diff HIV 1&2 Ab/P24 Ag 4thGn Negative Group A Strep (PCR) Not detected 07/13/25 19:59 WBC 21.1 H RBC 5.72 Hgb 16.4 Hct 49.2 MCV 86.0 MCH 28.7 MCHC 33.3 RDW 12.9 Plt Count 386 H MPV 10.9 H Immature Gran % (Auto) Not Reportable Neut % (Auto) Not Reportable Lymph % (Auto) Not Reportable [place] % (Auto) Not Reportable Eos % (Auto) Not Reportable Baso % (Auto) Not Reportable Lymph # (Auto) Not Reportable [place] # (Auto) Not Reportable Eos # (Auto) Not Reportable Baso # (Auto) Not Reportable Abs Immat Gran (auto) Not Reportable Absolute Neuts (auto) Not Reportable Absolute Nucleated RBC Not Reportable Total Counted 100 Neutrophils % (Manual) 85 H Band Neutrophils % 2 Lymphocytes % (Manual) 6.0 L Monocytes % (Manual) 6 Basophils % (Manual) 1 Nucleated RBC % Not Reportable Abs Neuts (Manual) 18.35 H Abs Lymphs (Manual) 1.26 Abs Monocytes (Manual) 1.26 H Abs Basophils (Manual) 0.21 H Platelet Estimate Slightly increased Schistocytes None seen PT 13.8 INR 1.1 Sodium 143 Potassium 4.0 Chloride 103 Carbon Dioxide 20 L Anion Gap 20 H BUN 26 H Creatinine 1.60 H Estim Creat Clear Calc 66 Estimated GFR 55 L Glucose 139 H Lactic Acid Calcium 10.7 H Magnesium 2.3 Total Bilirubin 2.4 H AST 106 H ALT 172 H Alkaline Phosphatase 121 Total Creatine Kinase 600 H Total Protein Albumin Lipase Procalcitonin Urine Color Urine Appearance Urine pH Ur Specific [place] Urine Protein Urine Glucose (UA) Urine Ketones Ur Blood (Man) Urine Nitrate Urine Bilirubin Urine Urobilinogen Leukocyte Esterase Rfl Urine RBC Urine WBC Ur Squamous Epith Cells Urine Bacteria Urine Casts Hyaline Casts Nasal MRSA (PCR) Urine Opiates Screen Urine Methadone Screen Ur Barbiturates Screen Ur Phencyclidine Scrn Ur Amphetamine Screen U Benzodiazepines Scrn Urine Cocaine Screen U Cannabinoids Screen Hepatitis A IgM Ab Hep Bs Antigen Hep B Core IgM Ab Hepatitis C Ab Screen Monoscreen Histoplasma Ab Imm Diff HIV 1&2 Ab/P24 Ag 4thGn Group A Strep (PCR) Imaging Radiologist's impression: CXR: IMPRESSION: No acute lung findings. A/P CT: IMPRESSION: No acute abnormality is noted in the abdomen and pelvis. Hepatic steatosis. Head/neck US: IMPRESSION: 1. Normal bilateral jugular chain lymph nodes. No pathologically enlarged lymphadenopathy or other abnormal masses or fluid collections identified. Discharge Plan Discharge Attending physician on discharge: Larry Roberts Consulting providers: Riccardo Majano; Paula oFx Discharging Clinician: Paula Fox Anticipated Discharge Date/Time: 07/14/25 16:00 Patient Disposition: Home Activity: may shower Diet: regular Discharge Instructions: 1. Your WBC (white blood counts) are continuing to decrease, this is a good thing. I spoke to the hematology team (blood specialists) and they would like to see you on an outpatient basis to review your labs, I have attached Dr. Tao's contact information. Continue to check your blood pressure and blood sugar at home if applicable. Keep your scheduled appts with your primary care provider and any specialist that you may see. Return to the emergency department if you develop sudden shortness of breath, chest pain, a fever of greater than 101.5, or nausea, vomiting, abd pain, or diarrhea that does not go away. Follow-up with your primary care provider within 1-2 weeks, they will want to be updated on your inpatient stay in the hospital. Thank you for [facility] for your healthcare needs. Patient Language: Ivorian Stand Alone Forms: General Discharge Information Follow-up/Referrals: Paula Fox APRN [Advanced Practice Nurse, Hospitalist] Discharge Medications: Continued fluticasone propionate [Flonase Allergy Relief] 50 mcg/actuation spray,suspension 1 spray intranasal DAILY Qty: 16 0RF Rx Instructions: administer into each nostril Date of admission: 07/13/25 22:41 Primary Care Provider: PHYSICIAN,HANDICRAFTS TEACHER Admitting Provider: Larry Roberts Attending physician on admission: Larry Roberts Condition: Stable Quality VTE Prophylaxis VTE prophylaxis: mechanical ordered Hospitalist MIPS Heart Failure (Exclusion) Patient has history of Heart Transplant or Left Ventricular Assistive Device?: No IF YES, STOP HERE Heart Failure (Qualifier) Patient has current or prior documentation of LVEF less than or equal to 40%, or mod/servere depressed LVSF?: No IF NO, STOP HERE
[2025-07-19 15:09] LABS: Histoplasma Abs, Qn, DID Negative (Neg:<1:1)
== END 2025-07-14 16:38 | disposition home or self-care (01) ==
LOC: ANHED 22:47 → ANH3MEDSUR 23:16
PROVIDERS: Nurse Practitioner; Student in an Organized Health Care Education/Training Program; Admitting Provider Family Medicine; Emergency Provider Emergency Medicine; Visit Provider Family Medicine
DX: D72.829 Elevated white blood cell count, unspecified (principal); N17.9 Acute kidney failure, unspecified; R74.8 Abnormal levels of other serum enzymes; K76.0 Fatty (change of) liver, not elsewhere classified
CPT/HCPCS: 36415; 71046; 74177; 76536; 80048; 80053; 80074; 80307; 81001; 82550; 83605; 83690; 83735; 84145; 85025; 85027; 85610; 86308; 86698; 86703; 87040; 87086; 87641; 87651; 96361; 96365; 96368; 96375; 99285; G0378; G0379; G0432; J0692; J1100; J1200; J3373; J7030; Q9967